=== PATIENT | female | born 1990 | race Caucasian/White ===

== ENCOUNTER 2024-02-21 13:01 | Inpatient (IN) | payer MEDICAID, OTHER ==
[2024-02-21 14:14] LABS: Amphetamine Screen,Urine Not Detected (NotDetected); Barbiturate Screen,Urine Not Detected (NotDetected); Benzodiazepines Screen,Urine Not Detected (NotDetected); Cocaine Screen,Urine Not Detected (NotDetected); Methadone Screen, Urine Not Detected (NotDetected); Opiate Screen,Urine Not Detected (NotDetected); Phencyclidine Screen,Urine Not Detected (NotDetected); Tricyclic Antidepressant,Urine Not Detected (NotDetected); Urn Cannabinoid Scrn Not Detected (NotDetected)
[2024-02-21 14:15] LABS: Oxycodone Screen, Urine Not Detected (NotDetected)
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
[2024-02-21 16:24] LABS: Glucose,Whole Blood 179 mg/dL (70-110)
[2024-02-21] MEDS ORDERED: IBUPROFEN 600 MG TAB PO PRN (17:22)
[2024-02-21] MEDS ORDERED: MAG HYDROX/AL HYDROX/SIMETH 355 ML BOTTLE PO PRN (17:22)
[2024-02-21] MEDS ORDERED: MAGNESIUM HYDROXIDE 2,400 MG/30 ML CUP PO PRN (17:22)
[2024-02-21] MEDS ORDERED: LORazepam 1 MG TAB PO PRN (17:22)
[2024-02-21] MEDS ORDERED: ACETAMINOPHEN TAB 325 MG TAB PO PRN (17:22)
[2024-02-21] MEDS ORDERED: HALOPERIDOL LACTATE 5 MG/ML 1 ML VIAL IM PRN (17:26)
[2024-02-21] MEDS ORDERED: hydrOXYzine HCL 50 MG/ML 1 ML VIAL IM PRN (17:26)
[2024-02-21] MEDS ORDERED: haloperidoL 5 MG TAB PO PRN (17:26)
[2024-02-21] MEDS ORDERED: hydrOXYzine pamoate 25 MG CAP PO PRN (17:26)
[2024-02-21] MEDS ORDERED: DEXTROSE 50% SYRINGE 50 ML IVP PRN ×2 (17:33)
[2024-02-21 18:09] LABS: Glucose,Whole Blood 219 mg/dL (70-110)
[2024-02-21] MEDS: INSULIN ASPART (NovoLOG) 100 UNIT/ML VIAL SQ SCH (18:09)
[2024-02-21] MEDS: INSULIN NPH 100 UNIT/ML 10 ML VIAL SQ SCH (18:10)
[2024-02-21 18:23] VITALS: RESP 16
[2024-02-21 18:29] LABS: Appearance,Urine Clear (Clear); Bilirubin,Urine Negative (Negative); Blood,Urine Negative (Negative); Color,Urine Colorless; Glucose,Urine (UA) 4+ (Negative); Leukocyte Esterase,Urine Negative (Negative); Nitrite,Urine Negative (Negative); Protein,Urine Negative (Negative); Specific Gravity,Urine 1.005 (1.001-1.035); Urobilinogen,Urine <2.0 mg/dL (<2.0)
[2024-02-21 18:37] LABS: Ketones,Urine 2+ (Negative)
[2024-02-21 20:23] LABS: Glucose,Whole Blood 360 mg/dL (70-110)
[2024-02-21 22:07] LABS: Glucose,Whole Blood 135 mg/dL (70-110)
[2024-02-22 06:29] LABS: Basophils # (A) 0.1 k/uL (0-0.2); Basophils % (A) 1 %; Eosinophils # (A) 0.2 k/uL (0-0.7); Eosinophils % (A) 3 %; HCT 39.7 % (34.0-46.0); HGB 12.5 gm/dL (11.4-16.0); Lymphocytes # (A) 2.6 k/uL (1.0-4.8); Lymphocytes % (A) 39 %; MCH 28.1 pg (25.0-35.0); MCHC 31.5 g/dL (31.0-37.0); MCV 89.1 fL (80.0-100.0); Mean Platelet Volume 7.8; Monocytes # (A) 0.5 k/uL (0-1.0); Monocytes % (A) 7 %; Neutrophils # (A) 3.2 k/uL (1.3-7.7); Neutrophils % (A) 47 %; Platelet Count 358 k/uL (150-450); RBC 4.46 m/uL (3.80-5.40); RDW 13.9 % (11.5-15.5); WBC 6.7 k/uL (3.8-10.6)
[2024-02-22 06:37] LABS: ALT 11 U/L (4-34); AST 18 U/L (14-36); African American GFR (CKD) >90 (>60 ml/min/1.73 sqM); Albumin 4.1 g/dL (3.5-5.0); Alkaline Phosphatase 48 U/L (38-126); Anion Gap 8 mmol/L; Blood Urea Nitrogen 11 mg/dL (7-17); Calcium 9.3 mg/dL (8.4-10.2); Carbon Dioxide 21 mmol/L (22-30); Chloride 107 mmol/L (98-107); Glucose 203 mg/dL (74-99); Non-African American GFR(CKD) >90 (>60 ml/min/1.73 sqM); Potassium 4.5 mmol/L (3.5-5.1); Sodium 136 mmol/L (137-145); Total Bilirubin 0.7 mg/dL (0.2-1.3)
[2024-02-22 07:52] LABS: Glucose,Whole Blood 208 mg/dL (70-110)
[2024-02-22] MEDS: FOLIC ACID 1 MG TAB PO SCH ×2 (07:52→07:53)
[2024-02-22] MEDS: THIAMINE 100 MG TAB PO SCH (07:52)
[2024-02-22] MEDS: MULTIVITAMINS, THERA 1 EACH TAB PO SCH (07:52)
[2024-02-22 12:35] LABS: Glucose,Whole Blood 238 mg/dL (70-110)
[2024-02-22] MEDS ORDERED: buPROPion XL 150 MG TAB.ER.24H PO SCH (14:00)
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
[2024-02-22] MEDS: LORazepam 1 MG TAB PO PRN (15:02)
[2024-02-22 17:38] LABS: Glucose,Whole Blood 268 mg/dL (70-110)
--- NOTE | 2024-02-22 18:22 | P.MDCNMH ---
History of Present Illness H&P Date: 02/22/24 Patient is a 33-year-old female with history of type 1 diabetes diagnosed at the age of 18 currently in our mental health unit. [facility] physicians consulted for medical management. She denies any new complaints. She denies any chest pain, shortness of breath, abdominal pain, nausea, vomiting, urinary or bowel complaints. She used to see endocrinology 8 years ago, but stopped seeing due to her anxiety. She currently buys her own insulin which is regular insulin and NPH insulin and doses it based on her blood sugars 3 times a day. She has not checked her A1c anytime recently. She did not have a primary care. She claims that her type 1 diabetes is not being addressed due to cost issue as well as her debilitating anxiety. Pertinent positives and negatives as discussed in HPI, a complete review of systems was performed and all other systems are negative. Patient seen and examined at bedside. Vital signs reviewed General: nontoxic, no distress, appears at stated age Derm: warm, dry Head: atraumatic, normocephalic, symmetric Eyes: EOMI, no lid lag, anicteric sclera, pupils equal round reactive to light ENT: Nose and ears atraumatic Neck: No thyromegaly, supple Mouth: no lip lesion, mucus membranes moist Cardiovascular: S1S2 reg, no murmur, no edema Lungs: clear to auscultation bilateral, no rhonchi, no rales, no wheeze, no accessory muscle use Abdominal: soft, nontender to palpation, no guarding, no appreciable organomegaly Ext: no gross muscle atrophy, muscle strength muscle strength 5 out of 5 in all 4 extremities, no contractures Neuro: CN II-XII grossly intact Psych: Alert, oriented, appropriate affect Assessment/Plan: Active: Type 1 diabetes Uncontrolled hyperglycemia -A1c 12.2 -Started on Levemir 15 units nightly and aspart 5 units 3 times daily, sliding scale insulin ACH S, monitor for hypoglycemia -At the time of discharge, consider 70/30 insulin as it is more cost friendly -She will need close follow-up with primary, follow-up with the internal medicine clinic at [facility] at the time of discharge Rest of the psychiatric care per primary team Thank you for allowing us to participate in the care of this pleasant patient. Do not hesitate to contact us with questions. Someone can be reached from the [facility] hospitalist group all hours of the day at [phone] or via [employer]. Past Medical History Past Medical History: Diabetes Mellitus History of Any Multi-Drug Resistant Organisms: None Reported Past Surgical History: No Surgical Hx Reported Past Anesthesia/Blood Transfusion Reactions: No Reported Reaction Past Psychological History: Depression, PTSD Smoking Status: Never smoker Past Alcohol Use History: Abuse Past Drug Use History: Marijuana Medications and Allergies Home Medications Medication Instructions Recorded Confirmed Type Folic Acid 1 mg PO DAILY 02/21/24 02/21/24 History Insulin NPH Human Isophane 6 - 8 units SQ TID 02/21/24 02/21/24 History [NovoLIN N] Insulin Regular, Human [NovoLIN R] 4 - 5 unit SQ TID-W/MEALS 02/21/24 02/21/24 History Milk Thistle 1,000mg 1,000 mg PO DAILY 02/21/24 02/21/24 History Allergies Allergy/AdvReac Type Severity Reaction Status Date / Time No Known Allergies Allergy Verified 02/21/24 15:38 Physical Exam Vitals: Vital Signs Pulse BP 02/22/24 06:30 86 116/77 Cranial Nerve Examination - Cranial Nerves Cranial Nerve II- Optic: Intact Cranial Nerve III- Oculomotor: Intact Cranial Nerve IV- Trochlear: Intact Cranial Nerve V- Trigeminal: Intact Cranial Nerve - Abducens: Intact Cranial Nerve VII- Facial: Intact Cranial Nerve VIII- Auditory: Intact Cranial Nerve IX- Glossopharyngeal: Intact Cranial Nerve X- Vagus: Intact Cranial Nerve XI- Accessory: Intact Cranial Nerve XII- Hypoglossal: Intact Results CBC & Chem 7: 02/22/24 05:57 02/22/24 05:57 Labs: Abnormal Lab Results - Last 24 Hours (Table) 02/21/24 02/21/24 02/21/24 Range/Units 13:24 20:22 22:06 Sodium (137-145) mmol/L Carbon Dioxide (22-30) mmol/L Glucose (74-99) mg/dL POC Glucose (mg/dL) 360 H 135 H (70-110) mg/dL Hemoglobin A1c (<=6.0) % Urine Glucose (UA) 4+ H (Negative) Urine Ketones 2+ H (Negative) 02/22/24 02/22/24 02/22/24 Range/Units 05:57 05:57 07:49 Sodium 136 L (137-145) mmol/L Carbon Dioxide 21 L (22-30) mmol/L Glucose 203 H (74-99) mg/dL POC Glucose (mg/dL) 208 H (70-110) mg/dL Hemoglobin A1c 12.2 H (<=6.0) % Urine Glucose (UA) (Negative) Urine Ketones (Negative) 02/22/24 02/22/24 Range/Units 12:33 17:36 Sodium (137-145) mmol/L Carbon Dioxide (22-30) mmol/L Glucose (74-99) mg/dL POC Glucose (mg/dL) 238 H 268 H (70-110) mg/dL Hemoglobin A1c (<=6.0) % Urine Glucose (UA) (Negative) Urine Ketones (Negative)
[2024-02-22 20:12] LABS: Glucose,Whole Blood 319 mg/dL (70-110)
[2024-02-22] MEDS: MELATONIN 5 MG TABLET PO SCH (20:18)
[2024-02-22] MEDS: INSULIN DETEMIR (LEVEMIR) 100 UNIT/ML SYR SQ SCH (23:08)
[2024-02-23 08:01] LABS: Glucose,Whole Blood 77 mg/dL (70-110)
[2024-02-23] MEDS: buPROPion XL 150 MG TAB.ER.24H PO SCH (08:26)
[2024-02-23] MEDS: INSULIN ASPART (NovoLOG) 100 UNIT/ML VIAL SQ SCH (08:27)
[2024-02-23 11:01] LABS: Glucose,Whole Blood 282 mg/dL (70-110)
--- NOTE | 2024-02-23 11:46 | P.PN ---
Progress Note - Text Progress Note Date: 02/23/24 Interval History: Patient was seen in group and was directable and agreeable to speak with automobile service writer in her room. She states feeling overall well today however does report being upset yesterday when told she will have to stay over the weekend. She states she was able to speak to a staff member who helped console her and she is feeling better today. She mentions an intrusive peer on the unit however she has been able to maintain boundaries. She reports feeling more social today after taking the medication however is reporting "giddiness" and patient was encouraged to monitor for any surfacing of hypomanic symptoms. She states she has been attending groups however she is more of an introvert and thus this has been hard at times. Discussed her relationship with her parents and she states she has been feeling much better distancing herself from them given their differences. She has spoken to her brother and boyfriend while she has been here. She states anxiety is better and is reporting lower depression today. At this time patient denies any suicidal or homicidal ideations, intent or plan. Patient denies any auditory, visual hallucinations and denies any paranoia or delusions. Patient denies any side effects from the medications and has been compliant with meds. Mental Status Exam: General Appearance: Patient appears to be stated age is alert, directable, and cooperative. Behavior: Patient is calmly seated without any agitated behavior. Speech: Patient's speech is fluent and nonpressured. Mood/Affect: Mood is improving mildly, affect is congruent and blunted. Suicidality/Homicidality: Patient denies having any suicidal or homicidal ideation intent or plan. Perceptions: Patient denies any visual hallucinations and denies any auditory hallucinations Though content/process: There is no evidence of any delusional thought content and thought process is linear and goal-directed. Memory and concentration: AOX3, grossly intact for the purposes of this session Judgment and insight: Improving mildly Assessment Adjustment disorder with depressed mood Social anxiety disorder Cannabis use disorder, mild Alcohol use disorder Plan: -Patient continues to meet criteria for inpatient psychiatric admission for symptom stabilization and safety. Patient has signed adult voluntary form and medication consent and was placed in patient's chart. -Medications: Start Wellbutrin XL 150 mg daily today for depression, melatonin 5 mg at bedtime for sleep -When necessary Ativan and Haldol for agitation/aggression. -Labs: Reviewed -NRT -not needed as patient does not smoke -SW on board for discharge planning. Encouraged the patient to participate in milieu. Anticipate discharge home with boyfriend on Monday, will confirm with boyfriend no firearms in the home
[2024-02-23 12:34] LABS: Glucose,Whole Blood 277 mg/dL (70-110)
[2024-02-23 17:33] LABS: Glucose,Whole Blood 306 mg/dL (70-110)
[2024-02-23 21:18] LABS: Glucose,Whole Blood 265 mg/dL (70-110)
[2024-02-24 07:58] LABS: Glucose,Whole Blood 93 mg/dL (70-110)
[2024-02-24 09:51] VITALS: TEMP 98.6
--- NOTE | 2024-02-24 11:00 | P.PN ---
Progress Note - Text Progress Note Date: 02/24/24 Interval History: Patient was seen in group and was directable and agreeable to speak with rewriter in her room. Patient states that her mood continues to be fair but anxious but that she is hoping to return home Monday. Discussed meds for anxiety and depression, including Effexor and the potential for seizures and worsened anxiety with Wellbutrin. Patient was agreeable with transitioning from Wellbutrin to Effexor. Discussed at length the events leading to decompensation. Patient agreeable with pursuing psychotherapy outpatient and discussed resources for this. Patient also plans to limit her exposure to social medial and news. She is better able to reflect the impact her suicide attempt has on those around her and states that she feels terrible about the idea of her boyfriend having to live without her. Patient is more future oriented and describing coping skills. She reports sleeping and eating well. At this time patient denies any suicidal or homicidal ideations, intent or plan. Patient denies any auditory, visual hallucinations and denies any paranoia or delusions. Patient denies any side effects from the medications and has been compliant with meds. Mental Status Exam: General Appearance: Patient appears to be stated age is alert, directable, and cooperative. Behavior: Patient is calmly seated without any agitated behavior. Speech: Patient's speech is fluent and nonpressured. Mood/Affect: Mood is improving mildly, anxious, affect is congruent and blunted. Suicidality/Homicidality: Patient denies having any suicidal or homicidal ideation intent or plan. Perceptions: Patient denies any visual hallucinations and denies any auditory hallucinations Though content/process: There is no evidence of any delusional thought content and thought process is linear and goal-directed. Memory and concentration: AOX3, grossly intact for the purposes of this session Judgment and insight: Improving mildly Assessment Adjustment disorder with depressed mood Social anxiety disorder Cannabis use disorder, mild Alcohol use disorder Plan: -Patient continues to meet criteria for inpatient psychiatric admission for symptom stabilization and safety. Patient has signed adult voluntary form and medication consent and was placed in patient's chart. -Medications: Stop Wellbutrin XL 150 mg daily due to risk of seizures with alcohol use, start Effexor XR 37.5 mg daily today and increase to 75 mg daily tomorrow, melatonin 5 mg at bedtime for sleep -When necessary Ativan and Haldol for agitation/aggression. -Labs: Reviewed -NRT -not needed as patient does not smoke -SW on board for discharge planning. Encouraged the patient to participate in milieu. Anticipate discharge home with boyfriend on Monday, will confirm with boyfriend no firearms in the home
[2024-02-24] MEDS: VENLAFAXINE HCL ER 37.5 MG CAP PO SCH (11:25)
[2024-02-24 12:44] LABS: Glucose,Whole Blood 296 mg/dL (70-110)
[2024-02-24 17:33] LABS: Glucose,Whole Blood 174 mg/dL (70-110)
[2024-02-24 20:05] LABS: Glucose,Whole Blood 322 mg/dL (70-110)
[2024-02-25 07:46] LABS: Glucose,Whole Blood 152 mg/dL (70-110)
[2024-02-25] MEDS: VENLAFAXINE HCL ER 75 MG CAP PO SCH (08:00)
--- NOTE | 2024-02-25 11:20 | P.PN ---
Progress Note - Text Progress Note Date: 02/25/24 Interval History: Patient was seen in group and was directable and agreeable to speak with keno writer in her room. patient states that her mood has been improving and she has noticed herself able to be more social with medication. She also reports standing up for others when she feels they are being bullied. She denies any concerns with Effexor and would like to be continued on it. She discusses her concerns about sobriety including being able to live with anxiety without consuming alcohol. If experiencing panic, patient was encouraged to take Vistaril as needed for anxiety. Discussed medication assisted treatment for alcohol use disorder but patient was uninterested in medications for craving at this time. She reports sleeping and eating well. Also discussed seeking psychotherapy outpatient. Provided patient with resources from [employer]. At this time patient denies any suicidal or homicidal ideation, intent or plan. Patient denies any auditory, visual hallucinations and denies any paranoia or delusions. Patient denies any side effects from the medications and has been compliant with meds. Questions were answered. Vital Signs Temp 98.6 F 02/24/24 09:49 Pulse 85 02/24/24 09:49 Resp 16 02/24/24 09:49 BP 145/81 02/24/24 09:49 Pulse Ox 100 02/23/24 07:22 FiO2 Mental Status Exam: General Appearance: Patient appears to be stated age is alert, directable, and cooperative. Behavior: Patient is calmly seated without any agitated behavior. Speech: Patient's speech is fluent and nonpressured. Mood/Affect: Mood is improving mildly, affect is congruent and blunted. Suicidality/Homicidality: Patient denies having any suicidal or homicidal ideation intent or plan. Perceptions: Patient denies any visual hallucinations and denies any auditory hallucinations Though content/process: There is no evidence of any delusional thought content and thought process is linear and goal-directed. Memory and concentration: AOX3, grossly intact for the purposes of this session Judgment and insight: Improving mildly Assessment Adjustment disorder with depressed mood Social anxiety disorder Cannabis use disorder, mild Alcohol use disorder Plan: -Patient continues to meet criteria for inpatient psychiatric admission for symptom stabilization and safety. Patient has signed adult voluntary form and medication consent and was placed in patient's chart. -Medications: Effexor XR 75 mg daily, melatonin 5 mg at bedtime for sleep -When necessary Vistaril and Haldol for agitation/aggression. -Labs: Reviewed -NRT -not needed as patient does not smoke -SW on board for discharge planning. Encouraged the patient to participate in milieu. Anticipate discharge home with boyfriend on Monday, will confirm with boyfriend no firearms in the home
[2024-02-25 12:37] LABS: Glucose,Whole Blood 258 mg/dL (70-110)
[2024-02-25 13:27] VITALS: BP 139/94; PULSE 112
[2024-02-25 17:35] LABS: Glucose,Whole Blood 227 mg/dL (70-110)
[2024-02-25 20:04] LABS: Glucose,Whole Blood 241 mg/dL (70-110)
[2024-02-25 23:08] LABS: Glucose,Whole Blood 59 mg/dL (70-110)
[2024-02-25 23:21] LABS: Glucose,Whole Blood 101 mg/dL (70-110)
[2024-02-26 08:01] LABS: Glucose,Whole Blood 179 mg/dL (70-110)
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
== END 2024-02-26 12:03 | disposition home or self-care (01) | DRG 754 ==
LOC: EC 13:01 → 3MHU 17:19
PROVIDERS: ADMIT Psychiatry & Neurology Psychiatry; ATTEND Psychiatry & Neurology Psychiatry
DX: F43.21 Adjustment disorder with depressed mood (principal); Z91.190 Patient's noncompliance with other medical treatment and regimen due to financial hardship; R45.851 Suicidal ideations; E10.65 Type 1 diabetes mellitus with hyperglycemia; Z79.4 Long term (current) use of insulin; F40.10 Social phobia, unspecified; F43.10 Post-traumatic stress disorder, unspecified; Z81.8 Family history of other mental and behavioral disorders; Z59.71 Insufficient health insurance coverage; Z63.8 Other specified problems related to primary support group; Z81.1 Family history of alcohol abuse and dependence; Z79.899 Other long term (current) drug therapy
CPT/HCPCS: 36415; 80053; 80306; 81003; 81025; 82075; 83036; 84443; 85025; 87636; 99285

== ENCOUNTER 2024-03-23 10:07 | Emergency (ER) | payer OTHER ==
[2024-03-23 10:19] VITALS: TEMP 98.6
[2024-03-23 10:48] VITALS: RESP 16
--- NOTE | 2024-03-23 11:28 | ED ---
General Adult HPI - General Chief complaint: Upper Respiratory Infection Stated complaint: Fluid on lungs Time Seen by Provider: 03/23/24 11:26 Source: patient, RN notes reviewed Mode of arrival: ambulatory Limitations: no limitations - History of Present Illness Initial comments: 33-year-old female with past medical history significant of type 1 diabetes presenting to the ER with a chief complaint of a cough and chest discomfort. Patient sent by urgent care for further evaluation. Patient states for the past 8 or 9 days she has been having a persistent cough and a tightness/pressure sensation to her right upper chest. Patient has tried DayQuil, NyQuil and hot beverages without relief. Patient states yesterday she started to cough up a "waxy yellow phlegm". Patient was seen by urgent care who completed a chest x- ray prior to arrival and stated patient has "fluid on her lungs". Patient denies any fevers, chills, nausea, vomiting, abdominal pain. She does report shortness of breath and chest discomfort. Denies any wheezing, history of blood clots, blood thinner use, smoking, control use. Patient denies any recent travel. No known cardiac history. - Related Data Home Medications Medication Instructions Recorded Confirmed Folic Acid 1 mg PO DAILY 02/21/24 02/21/24 Insulin NPH Human Isophane 6 - 8 units SQ TID 02/21/24 02/21/24 [NovoLIN N] Insulin Regular, Human [NovoLIN R] 4 - 5 unit SQ TID-W/MEALS 02/21/24 02/21/24 Milk Thistle 1,000mg 1,000 mg PO DAILY 02/21/24 02/21/24 Previous Rx's Medication Instructions Recorded INSULIN ASPART (NovoLOG) [NovoLOG 0 unit SQ ACHS each 02/26/24 (formulary)] Insulin Detemir (Levemir) [Levemir] 15 unit SQ HS each 02/26/24 Melatonin 5 mg PO HS 30 Days #30 tab 02/26/24 Multivitamins, Thera [Multivitamin 1 each PO DAILY tab 02/26/24 (formulary)] Thiamine [Vitamin B-1] 100 mg PO DAILY tab 02/26/24 Venlafaxine HCl ER [Effexor XR] 75 mg PO DAILY 30 Days #30 cap 02/26/24 hydrOXYzine pamoate [Vistaril] 50 mg PO TID PRN 30 Days #60 cap 02/26/24 Albuterol Inhaler [Ventolin Hfa 1 - 2 puff INHALATION Q6H PRN #1 03/23/24 Inhaler] each Nystatin 100,000 Unit/ml Susp 5 ml PO QID #100 ml 03/23/24 [Mycostatin Oral Susp] Allergies Allergy/AdvReac Type Severity Reaction Status Date / Time No Known Allergies Allergy Verified 03/23/24 10:15 Review of Systems ROS Statement: Those systems with pertinent positive or pertinent negative responses have been documented in the HPI. ROS Other: All systems not noted in ROS Statement are negative. Past Medical History Past Medical History: Diabetes Mellitus History of Any Multi-Drug Resistant Organisms: None Reported Past Surgical History: No Surgical Hx Reported Past Anesthesia/Blood Transfusion Reactions: No Reported Reaction Past Psychological History: Depression, PTSD Smoking Status: Never smoker Past Alcohol Use History: Abuse Past Drug Use History: Marijuana General Exam Limitations: no limitations General appearance: alert, in no apparent distress ENT exam: Present: normal oropharynx, mucous membranes moist (White plaque to tongue), TM's normal bilaterally Neck exam: Present: normal inspection. Absent: tenderness, meningismus, lymphadenopathy Respiratory exam: Present: normal lung sounds bilaterally. Absent: respiratory distress, wheezes, rales, rhonchi, stridor Cardiovascular Exam: Present: regular rate, normal rhythm, normal heart sounds. Absent: systolic murmur, diastolic murmur, rubs, gallop, clicks Extremities exam: Present: normal inspection, full ROM, normal capillary refill. Absent: tenderness, pedal edema, joint swelling, calf tenderness Neurological exam: Present: alert, oriented X3, CN II-XII intact Skin exam: Present: warm, dry, intact, normal color. Absent: rash Course Vital Signs 03/23/24 03/23/24 03/23/24 10:15 10:26 10:49 Temperature 98.6 F Pulse Rate 108 H 87 Respiratory 20 16 16 Rate Blood Pressure 176/101 144/112 O2 Sat by Pulse 99 97 Oximetry 03/23/24 03/23/24 12:33 13:23 Temperature Pulse Rate 100 Respiratory 16 16 Rate Blood Pressure 136/98 131/97 O2 Sat by Pulse 98 99 Oximetry EKG Findings - EKG Comments: EKG Findings:: EKG taken at 11: 42 showing a sinus rhythm. No T wave or ST segment changes. Right axis deviation. Ventricular rate 82, LA interval 128, QRS duration 84, QT/QTc 361/399. Medical Decision Making - Medical Decision Making Was pt. sent in by a medical professional or institution (, ANAHI, COSTING ANALYST, urgent care, hospital, or intermediate...) When possible be specific @ -Patient sent by urgent care for evaluation of "fluid on the lungs" Did you speak to anyone other than the patient for history (EMS, parent, family, police, friend...)? What history was obtained from this source @ -No Did you review nursing and triage notes (agree or disagree)? Why? @ -I reviewed and agree with nursing and triage notes Were old charts reviewed (outside hosp., previous admission, EMS record, old EKG, old radiological studies, urgent care reports/EKG's, intermediate records)? Report findings @ -No old charts were reviewed Differential Diagnosis (chest pain, altered mental status, abdominal pain women, abdominal pain men, vaginal bleeding, weakness, fever, dyspnea, syncope, headache, dizziness, GI bleed, back pain, seizure, CVA, palpatations, mental health, musculoskeletal)? @ -Differential Chest Pain:Stable Angina, Unstable Angina, STEMI, NSTEMI Aortic Dissection, Pneumothorax, Musculoskeletal, Esophageal Spasm GERD, Cholecystitis, Pancreatitis, Zoster, this is not meant to be an all-inclusive list. EKG interpreted by me (3pts min.). @ -As above X-rays interpreted by me (1pt min.). @ -CXR interpreted by me negative for acute process. CT interpreted by me (1pt min.). @ -None done U/S interpreted by me (1pt. min.). @ -None done What testing was considered but not performed or refused? (CT, X-rays, U/S, labs)? Why? @ -None What meds were considered but not given or refused? Why? @ -None Did you discuss the management of the patient with other professionals (professionals i.e. ANAHI Oliver, COSTING ANALYST, lab, RT, psych nurse, social media coordinator, screen print operator, teacher, fourth officer, shoe caser)? Give summary @ -No Was smoking cessation discussed for >3mins.? @ -No Was critical care preformed (if so, how long)? @ -No Were there social determinants of health that impacted care today? How? (Homelessness, low income, unemployed, alcoholism, drug addiction, transpor tation, low edu. Level, literacy, decrease access to med. care, residential, rehab)? @ -No Was there de-escalation of care discussed even if they declined (Discuss DNR or withdrawal of care, Hospice)? DNR status @ -No What co-morbidities impacted this encounter? (DM, HTN, Smoking, COPD, CAD, Cancer, CVA, ARF, Chemo, Hep., AIDS, mental health diagnosis, sleep apnea, morbid obesity)? @ -Type 1 diabetes Was patient admitted / discharged? Hospital course, mention meds given and route, prescriptions, significant lab abnormalities, going to OR and other pertinent info. @ -Discharge. 33-year-old female presented to the ER with a chief complaint of cough and chest discomfort. Patient sent by urgent care. History and physical exam completed. Patient is tachycardic and hypertensive upon arrival which resolved. Otherwise vitals stable. Exam remarkable for white plaque to tongue concerning of thrush. Patient will be started on nystatin oral suspension. This is believed to be due to diabetes. Cardiac workup along with viral swabs obtained and negative. Troponin undetectable. D-dimer 0.25. Viral swabs negative. Chest x-ray negative. Symptoms believed to be viral in nature. Al buterol inhaler prescribed. Patient stable for discharge. Strict return parameters discussed. Patient discharged in stable condition with follow-up to PCP. Patient verbally expressed understanding and agreement with care plan. Case discussed with ED attending, Dr. Espino. Undiagnosed new problem with uncertain prognosis? @ -No Drug Therapy requiring intensive monitoring for toxicity (Heparin, Nitro, Insulin, Cardizem)? @ -No Were any procedures done? @ -No Diagnosis/symptom? @ -Thrush/viral sinusitis Acute, or Chronic, or Acute on Chronic? @ -Acute Uncomplicated (without systemic symptoms) or Complicated (systemic symptoms)? @ -Uncomplicated Side effects of treatment? @ -No Exacerbation, Progression, or Severe Exacerbation? @ -No Poses a threat to life or bodily function? How? (Chest pain, USA, SD, pneumonia, PE, COPD, DKA, ARF, appy, cholecystitis, CVA, Diverticulitis, Homicidal, Suicidal, threat to staff... and all critical care pts) @ -No - Lab Data Result diagrams: 03/23/24 11:57 03/23/24 11:57 Lab Results 03/23/24 03/23/24 03/23/24 Range/Units 11:39 11:41 11:57 WBC 8.9 (3.8-10.6) k/uL RBC 4.54 (3.80-5.40) m/uL Hgb 12.9 (11.4-16.0) gm/dL Hct 40.3 (34.0-46.0) % MCV 88.8 (80.0-100.0) fL MCH 28.3 (25.0-35.0) pg MCHC 31.9 (31.0-37.0) g/dL RDW 14.0 (11.5-15.5) % Plt Count 412 (150-450) k/uL MPV 7.2 Neutrophils % 72 % Lymphocytes % 18 % Monocytes % 5 % Eosinophils % 4 % Basophils % 0 % Neutrophils # 6.4 (1.3-7.7) k/uL Lymphocytes # 1.6 (1.0-4.8) k/uL Monocytes # 0.4 (0-1.0) k/uL Eosinophils # 0.3 (0-0.7) k/uL Basophils # 0.0 (0-0.2) k/uL PT (10.0-12.5) sec INR (<1.2) APTT (22.0-30.0) sec D-Dimer (<0.60) mg/L FEU Sodium (137-145) mmol/L Potassium (3.5-5.1) mmol/L Chloride (98-107) mmol/L Carbon Dioxide (22-30) mmol/L Anion Gap mmol/L BUN (7-17) mg/dL Creatinine (0.52-1.04) mg/dL Est GFR (CKD-EPI)AfAm (>60 ml/min/1.73 sqM) Est GFR (CKD-EPI)NonAf (>60 ml/min/1.73 sqM) Glucose (74-99) mg/dL Plasma Lactic Acid Rubén (0.7-2.0) mmol/L Calcium (8.4-10.2) mg/dL Total Bilirubin (0.2-1.3) mg/dL AST (14-36) U/L ALT (4-34) U/L Alkaline Phosphatase (38-126) U/L Troponin I (0.000-0.034) ng/mL Total Protein (6.3-8.2) g/dL Albumin (3.5-5.0) g/dL Urine HCG, Qual Not Detected (Not Detectd) Influenza Type A (PCR) Not Detected (Not Detectd) Influenza Type B (PCR) Not Detected (Not Detectd) RSV (PCR) Not Detected (Not Detectd) SARS-CoV-2 (PCR) Not Detected (Not Detectd) 03/23/24 03/23/24 03/23/24 Range/Units 11:57 11:57 11:57 WBC (3.8-10.6) k/uL RBC (3.80-5.40) m/uL Hgb (11.4-16.0) gm/dL Hct (34.0-46.0) % MCV (80.0-100.0) fL MCH (25.0-35.0) pg MCHC (31.0-37.0) g/dL RDW (11.5-15.5) % Plt Count (150-450) k/uL MPV Neutrophils % % Lymphocytes % % Monocytes % % Eosinophils % % Basophils % % Neutrophils # (1.3-7.7) k/uL Lymphocytes # (1.0-4.8) k/uL Monocytes # (0-1.0) k/uL Eosinophils # (0-0.7) k/uL Basophils # (0-0.2) k/uL PT 10.4 (10.0-12.5) sec INR 0.9 (<1.2) APTT 24.7 (22.0-30.0) sec D-Dimer 0.25 (<0.60) mg/L FEU Sodium 137 (137-145) mmol/L Potassium 4.2 (3.5-5.1) mmol/L Chloride 104 (98-107) mmol/L Carbon Dioxide 22 (22-30) mmol/L Anion Gap 11 mmol/L BUN 8 (7-17) mg/dL Creatinine 0.58 (0.52-1.04) mg/dL Est GFR (CKD-EPI)AfAm >90 (>60 ml/min/1.73 sqM) Est GFR (CKD-EPI)NonAf >90 (>60 ml/min/1.73 sqM) Glucose 189 H (74-99) mg/dL Plasma Lactic Acid Rubén 1.2 (0.7-2.0) mmol/L Calcium 9.5 (8.4-10.2) mg/dL Total Bilirubin 0.5 (0.2-1.3) mg/dL AST 23 (14-36) U/L ALT 14 (4-34) U/L Alkaline Phosphatase 48 (38-126) U/L Troponin I (0.000-0.034) ng/mL Total Protein 7.7 (6.3-8.2) g/dL Albumin 4.6 (3.5-5.0) g/dL Urine HCG, Qual (Not Detectd) Influenza Type A (PCR) (Not Detectd) Influenza Type B (PCR) (Not Detectd) RSV (PCR) (Not Detectd) SARS-CoV-2 (PCR) (Not Detectd) 03/23/24 Range/Units 11:57 WBC (3.8-10.6) k/uL RBC (3.80-5.40) m/uL Hgb (11.4-16.0) gm/dL Hct (34.0-46.0) % MCV (80.0-100.0) fL MCH (25.0-35.0) pg MCHC (31.0-37.0) g/dL RDW (11.5-15.5) % Plt Count (150-450) k/uL MPV Neutrophils % % Lymphocytes % % Monocytes % % Eosinophils % % Basophils % % Neutrophils # (1.3-7.7) k/uL Lymphocytes # (1.0-4.8) k/uL Monocytes # (0-1.0) k/uL Eosinophils # (0-0.7) k/uL Basophils # (0-0.2) k/uL PT (10.0-12.5) sec INR (<1.2) APTT (22.0-30.0) sec D-Dimer (<0.60) mg/L FEU Sodium (137-145) mmol/L Potassium (3.5-5.1) mmol/L Chloride (98-107) mmol/L Carbon Dioxide (22-30) mmol/L Anion Gap mmol/L BUN (7-17) mg/dL Creatinine (0.52-1.04) mg/dL Est GFR (CKD-EPI)AfAm (>60 ml/min/1.73 sqM) Est GFR (CKD-EPI)NonAf (>60 ml/min/1.73 sqM) Glucose (74-99) mg/dL Plasma Lactic Acid Rubén (0.7-2.0) mmol/L Calcium (8.4-10.2) mg/dL Total Bilirubin (0.2-1.3) mg/dL AST (14-36) U/L ALT (4-34) U/L Alkaline Phosphatase (38-126) U/L Troponin I <0.012 (0.000-0.034) ng/mL Total Protein (6.3-8.2) g/dL Albumin (3.5-5.0) g/dL Urine HCG, Qual (Not Detectd) Influenza Type A (PCR) (Not Detectd) Influenza Type B (PCR) (Not Detectd) RSV (PCR) (Not Detectd) SARS-CoV-2 (PCR) (Not Detectd) - Radiology Data Radiology results: report reviewed, image reviewed Disposition Clinical Impression: Thrush, Viral illness, Acute viral sinusitis Disposition: HOME SELF-CARE Condition: Stable Additional Instructions: Follow-up with PCP in the next 1 to 2 days. Return to the ER for any new or worsening concerns. Prescriptions: Nystatin 100,000 Unit/ml Susp [Mycostatin Oral Susp] 5 ml PO QID #100 ml Albuterol Inhaler [Ventolin Hfa Inhaler] 1 - 2 puff INHALATION Q6H PRN #1 each PRN Reason: Shortness Of Breath Is patient prescribed a controlled substance at d/c from ED?: No Referrals: None,Stated [Primary Care Provider] - 1-2 days Forms: Area PCPs Time of Disposition: 13:09
[2024-03-23 12:04] LABS: Basophils % (A) 0 %; Eosinophils # (A) 0.3 k/uL (0-0.7); Eosinophils % (A) 4 %; HCT 40.3 % (34.0-46.0); HGB 12.9 gm/dL (11.4-16.0); Lymphocytes # (A) 1.6 k/uL (1.0-4.8); Lymphocytes % (A) 18 %; MCH 28.3 pg (25.0-35.0); MCHC 31.9 g/dL (31.0-37.0); MCV 88.8 fL (80.0-100.0); Mean Platelet Volume 7.2; Monocytes # (A) 0.4 k/uL (0-1.0); Monocytes % (A) 5 %; Neutrophils # (A) 6.4 k/uL (1.3-7.7); Neutrophils % (A) 72 %; Platelet Count 412 k/uL (150-450); RBC 4.54 m/uL (3.80-5.40); WBC 8.9 k/uL (3.8-10.6)
--- NOTE | 2024-03-23 12:10 | XR ---
2 view chest HISTORY: Cough and congestion COMPARISON: None TECHNIQUE: PA and lateral views chest obtained. FINDINGS: The lungs are clear of consolidative, interstitial or masslike opacity. There is no pleural effusion, pleural thickening or pneumothorax. The heart, pulmonary vasculature, mediastinum and jaleesa are within normal limits. The osseous structures and soft tissues of the thorax are intact. IMPRESSION: No significant abnormality. No acute cardiopulmonary disease. [facility], Workstation: [email or web address], 03/23/2024 12:08 PM
[2024-03-23 12:15] LABS: ALT 14 U/L (4-34); African American GFR (CKD) >90 (>60 ml/min/1.73 sqM); Albumin 4.6 g/dL (3.5-5.0); Anion Gap 11 mmol/L; Blood Urea Nitrogen 8 mg/dL (7-17); Calcium 9.5 mg/dL (8.4-10.2); Carbon Dioxide 22 mmol/L (22-30); Chloride 104 mmol/L (98-107); Glucose 189 mg/dL (74-99); Non-African American GFR(CKD) >90 (>60 ml/min/1.73 sqM); Sodium 137 mmol/L (137-145); Total Bilirubin 0.5 mg/dL (0.2-1.3); Total Protein 7.7 g/dL (6.3-8.2)
[2024-03-23 12:21] LABS: INR 0.9 (<1.2); Partial Thromboplastin Time 24.7 sec (22.0-30.0); Prothrombin Time 10.4 sec (10.0-12.5)
[2024-03-23 12:41] LABS: AST 23 U/L (14-36); Alkaline Phosphatase 48 U/L (38-126); Potassium 4.2 mmol/L (3.5-5.1)
[2024-03-23 13:24] VITALS: BP 131/97; PULSE 100
== END 2024-03-23 13:24 | disposition home or self-care (01) ==
LOC: EC 10:07
DX: B37.9 Candidiasis, unspecified (principal); B97.89 Other viral agents as the cause of diseases classified elsewhere; J01.90 Acute sinusitis, unspecified; E10.9 Type 1 diabetes mellitus without complications
CPT/HCPCS: 36415; 71046; 80053; 81025; 83605; 84484; 85025; 85379; 85610; 85730; 87636; 93005; 99284